=== PATIENT | male | born 1995 | race Caucasian/White ===

== ENCOUNTER 2020-03-10 11:05 | Inpatient (IN) | payer OTHER ==
[~2020-03-10] VITALS: Ht 165.1 cm; Wt 63.0 kg
[2020-03-10] MEDS ORDERED: CETI-450 PO (11:39)
[2020-03-10 12:07] LABS: BASOPHILS % (AUTO) 0.1 % (0.0-2.0); EOSINOPHILS % (AUTO) 0.3 % (1.0-6.0); HEMATOCRIT 53.4 % (41-53); HEMOGLOBIN 18.6 g/dL (13.5-17.5); LYMPHOCYTES # (AUTO) 0.8 K/uL (1.0-4.8); LYMPHOCYTES % (AUTO) 10.4 % (22.0-44.0); MEAN CORPUSCULAR HEMOGLOBIN 30.9 pg (26.0-34.0); MEAN CORPUSCULAR HGB CONC 34.9 G/dL (31.0-37.0); MEAN CORPUSCULAR VOLUME 89 fL (80-100); MONOCYTES # (AUTO) 0.4 K/uL (0.1-1.0); MONOCYTES % (AUTO) 5.7 % (2.0-9.0); NEUTROPHILS # (AUTO) 6.3 K/uL (1.8-7.7); NEUTROPHILS % (AUTO) 83.5 % (40.0-70.0); PLATELET COUNT (AUTO) 222 K/uL (150-450); RED BLOOD CELL COUNT(AUTO) 6.03 MIL/uL (4.50-5.90); RED CELL DISTRIBUTION WIDTH 13.3 % (11.5-14.5)
[2020-03-10 12:15] LABS: ANION GAP 7 mmol/L (8-16); CALCIUM, TOTAL 9.4 mg/dL (8.8-10.5); CARBON DIOXIDE 29 mmol/L (22-29); CHLORIDE 104 mmol/L (98-107); CREATININE 0.79 mg/dL (0.60-1.30); GLOMERULAR FILTR. RATE CALC > 60 mL/min (>60); GLUCOSE,RANDOM 105 mg/dL (70-110); POTASSIUM 4.5 mmol/L (3.5-5.1); SODIUM SERUM 140 mmol/L (136-145); UREA NITROGEN, BLOOD 7 mg/dL (7-18)
[2020-03-10 12:21] LABS: ALANINE AMINOTRANSFERASE 34 U/L (12-78); ALBUMIN 4.4 g/dL (3.4-5.0); ALKALINE PHOSPHATASE 91 U/L (46-116); ASPARTATE AMINOTRANSFERASE 33 U/L (15-37); BILIRUBIN,TOTAL 0.6 mg/dL (0.1-1.0); TOTAL PROTEIN, SERUM 8.6 g/dL (6.4-8.2)
[2020-03-10] MEDS ORDERED: IPRATROPIUM BROMIDE 0.5 MG/2.5 ML NEB SOLUTION NEB PRN (12:45)
[2020-03-10] MEDS ORDERED: ONDANSETRON HCL 4 MG/2 ML VIAL IVP PRN (12:45)
[2020-03-10] MEDS ORDERED: ALBUTEROL SULFATE 2.5 MG/0.5 ML NEB SOLUTION NEB PRN (12:45)
[2020-03-10] MEDS ORDERED: DOCUSATE SODIUM 100 MG CAPSULE PO PRN (12:45)
[2020-03-10] MEDS ORDERED: BISACODYL 10 MG RECTAL RECTAL SUPPOSITORY PR PRN (12:45)
[2020-03-10] MEDS ORDERED: MAGNESIUM HYDROXIDE SUSPENSION 30 ML UDCUP PO PRN (12:45)
[2020-03-10] MEDS ORDERED: 0.9% SODIUM CHLORIDE 10 ML SYRINGE IVP PRN (12:45)
[2020-03-10] MEDS: PANTOPRAZOLE SODIUM 40 MG DR TABLET PO SCH (13:18)
[2020-03-10] MEDS: THIAMINE 100 MG TABLET PO SCH (13:18)
[2020-03-10] MEDS: MULTIVITAMINS, THERAPEUTIC TABLET PO SCH (13:19)
[2020-03-10] MEDS: FOLIC ACID 1 MG TABLET PO SCH (13:19)
[2020-03-10 15:46] VITALS: BP 145/97
[2020-03-10 19:35] VITALS: BP 149/85
[2020-03-11 03:02] LABS: AMPHET/METH SCREEN,URINE NEGATIVE (NEGATIVE); BARBITURATE SCREEN, URINE NEGATIVE (NEGATIVE); BENZODIAZEPINES SCREEN,URINE NEGATIVE (NEGATIVE); CANNABINOID SCREEN,URINE NEGATIVE (NEGATIVE); COCAINE SCREEN,URINE NEGATIVE (NEGATIVE); METHADONE SCREEN, URINE NEGATIVE (NEGATIVE); OPIATE SCREEN,URINE NEGATIVE (NEGATIVE)
[2020-03-11 03:45] LABS: PHENCYCLIDINE SCREEN,URINE NEGATIVE (NEGATIVE)
[2020-03-11 04:04] VITALS: BP 138/75
[2020-03-11 07:11] LABS: BASOPHILS % (AUTO) 0.4 % (0.0-2.0); EOSINOPHILS % (AUTO) 1.1 % (1.0-6.0); HEMATOCRIT 47.8 % (41-53); HEMOGLOBIN 16.8 g/dL (13.5-17.5); LYMPHOCYTES # (AUTO) 2.1 K/uL (1.0-4.8); LYMPHOCYTES % (AUTO) 26.9 % (22.0-44.0); MEAN CORPUSCULAR HEMOGLOBIN 31.4 pg (26.0-34.0); MEAN CORPUSCULAR HGB CONC 35.2 G/dL (31.0-37.0); MEAN CORPUSCULAR VOLUME 89 fL (80-100); MONOCYTES # (AUTO) 0.7 K/uL (0.1-1.0); MONOCYTES % (AUTO) 8.8 % (2.0-9.0); NEUTROPHILS % (AUTO) 62.8 % (40.0-70.0); PLATELET COUNT (AUTO) 222 K/uL (150-450); RED BLOOD CELL COUNT(AUTO) 5.36 MIL/uL (4.50-5.90); RED CELL DISTRIBUTION WIDTH 13.3 % (11.5-14.5)
[2020-03-11 07:22] LABS: ANION GAP 12 mmol/L (8-16); CALCIUM, TOTAL 8.9 mg/dL (8.8-10.5); CARBON DIOXIDE 27 mmol/L (22-29); CHLORIDE 104 mmol/L (98-107); CREATININE 0.76 mg/dL (0.60-1.30); GLOMERULAR FILTR. RATE CALC > 60 mL/min (>60); GLUCOSE,RANDOM 85 mg/dL (70-110); POTASSIUM 3.4 mmol/L (3.5-5.1); SODIUM SERUM 143 mmol/L (136-145); UREA NITROGEN, BLOOD 6 mg/dL (7-18)
[2020-03-11 07:28] VITALS: BP 135/76
[2020-03-11] MEDS: THIAMINE 100 MG TABLET PO SCH ×2 (08:35→08:41)
[2020-03-11] MEDS: PANTOPRAZOLE SODIUM 40 MG DR TABLET PO SCH ×2 (08:35→08:41)
[2020-03-11] MEDS: MULTIVITAMINS, THERAPEUTIC TABLET PO SCH ×2 (08:35→08:41)
[2020-03-11] MEDS: FOLIC ACID 1 MG TABLET PO SCH ×2 (08:35→08:41)
[2020-03-11] MEDS: RisperiDONE 1 MG TABLET PO SCH ×2 (09:51→20:45)
[2020-03-11 12:30] VITALS: BP 132/71
[2020-03-11] MEDS ORDERED: POTASSIUM CHLORIDE 20 MEQ ER TABLET PO ONE (14:30)
[2020-03-11 20:18] VITALS: BP 128/72
[2020-03-11] MEDS: MAGNESIUM SULFATE 2 GM, MVI, ADULT NO.1 WITH VIT K 10 ML, THIAMINE 100 MG, FOLIC ACID 1... IV SCH ×5 (20:30)
[2020-03-11] MEDS: POTASSIUM CHL 10 MEQ/WATER 50 ML IV SCH ×2 (20:45→21:33)
[2020-03-12 05:34] VITALS: BP 118/70
[2020-03-12 08:54] VITALS: BP 107/71
[2020-03-12] MEDS: RisperiDONE 1 MG TABLET PO SCH ×2 (09:04→20:13)
[2020-03-12] MEDS: PANTOPRAZOLE SODIUM 40 MG DR TABLET PO SCH (09:04)
[2020-03-12] MEDS: MAGNESIUM SULFATE 2 GM, MVI, ADULT NO.1 WITH VIT K 10 ML, THIAMINE 100 MG, FOLIC ACID 1... IV SCH ×5 (14:27)
[2020-03-12 15:27] LABS: ANION GAP 11 mmol/L (8-16); CALCIUM, TOTAL 8.9 mg/dL (8.8-10.5); CARBON DIOXIDE 27 mmol/L (22-29); CHLORIDE 104 mmol/L (98-107); CREATININE 0.92 mg/dL (0.60-1.30); GLOMERULAR FILTR. RATE CALC > 60 mL/min (>60); GLUCOSE,RANDOM 122 mg/dL (70-110); POTASSIUM 3.7 mmol/L (3.5-5.1); SODIUM SERUM 142 mmol/L (136-145); UREA NITROGEN, BLOOD 7 mg/dL (7-18)
[2020-03-12 15:52] VITALS: BP 112/63
[2020-03-12 20:00] VITALS: BP 121/77
[2020-03-13 04:55] VITALS: BP 125/72
[2020-03-13] MEDS: PANTOPRAZOLE SODIUM 40 MG DR TABLET PO SCH (08:19)
[2020-03-13] MEDS: RisperiDONE 1 MG TABLET PO SCH ×2 (08:19→20:50)
[2020-03-13 08:49] VITALS: BP 115/63
[2020-03-13] MEDS: MAGNESIUM SULFATE 2 GM, MVI, ADULT NO.1 WITH VIT K 10 ML, THIAMINE 100 MG, FOLIC ACID 1... IV SCH ×5 (14:36)
[2020-03-13 16:48] VITALS: BP 128/71
[2020-03-13 19:46] VITALS: BP 135/77
[2020-03-13] MEDS: ACETAMINOPHEN 325 MG TABLET PO PRN (19:48)
[2020-03-14 05:13] VITALS: BP 133/64
[2020-03-14 07:36] VITALS: BP 117/68
[2020-03-14] MEDS: PANTOPRAZOLE SODIUM 40 MG DR TABLET PO SCH (08:31)
[2020-03-14] MEDS: RisperiDONE 1 MG TABLET PO SCH ×2 (08:31→20:37)
[2020-03-14] MEDS: MAGNESIUM SULFATE 2 GM, MVI, ADULT NO.1 WITH VIT K 10 ML, THIAMINE 100 MG, FOLIC ACID 1... IV SCH ×5 (15:02)
[2020-03-14 15:25] VITALS: BP 128/67
[2020-03-14] MEDS: ACETAMINOPHEN 325 MG TABLET PO PRN ×2 (16:27→20:37)
[2020-03-14 20:00] VITALS: BP 155/69
[2020-03-14] MEDS ORDERED: LORazepam 2 MG/ML VIAL IM ONE (22:30)
[2020-03-14] MEDS ORDERED: DiphenhydrAMINE HCL 50 MG/ML VIAL IVP ONE (22:30)
[2020-03-14] MEDS ORDERED: HALOPERIDOL LACTATE 5 MG/ML VIAL IM ONE (22:30)
[2020-03-15 04:25] VITALS: BP 103/56
[2020-03-15 08:38] VITALS: BP 109/75
[2020-03-15] MEDS: PANTOPRAZOLE SODIUM 40 MG DR TABLET PO SCH (08:48)
[2020-03-15] MEDS: RisperiDONE 1 MG TABLET PO SCH ×2 (08:48→21:36)
[2020-03-15] MEDS: ACETAMINOPHEN 325 MG TABLET PO PRN ×2 (08:49→21:37)
[2020-03-15] MEDS: MAGNESIUM SULFATE 2 GM, MVI, ADULT NO.1 WITH VIT K 10 ML, THIAMINE 100 MG, FOLIC ACID 1... IV SCH ×5 (14:10)
[2020-03-15 19:48] VITALS: BP 120/62
[2020-03-16] MEDS: PANTOPRAZOLE SODIUM 40 MG DR TABLET PO SCH (09:00)
[2020-03-16] MEDS: RisperiDONE 1 MG TABLET PO SCH ×2 (09:00→20:04)
[2020-03-16] MEDS: ACETAMINOPHEN 325 MG TABLET PO PRN (20:04)
[2020-03-16 20:30] VITALS: BP 128/71
[2020-03-17 07:44] VITALS: BP 113/71
[2020-03-17] MEDS: RisperiDONE 1 MG TABLET PO SCH (09:00)
[2020-03-17] MEDS: PANTOPRAZOLE SODIUM 40 MG DR TABLET PO SCH (09:00)
[2020-03-17] MEDS ORDERED: RISP1TAB27 PO (14:18)
== END 2020-03-17 19:05 | DRG 885 ==
LOC: EMS 11:08 → 6S 12:45
PROVIDERS: ADMIT Internal Medicine; ATTEND Internal Medicine
DX: F25.1 Schizoaffective disorder, depressive type (principal); R45.851 Suicidal ideations; F23 Brief psychotic disorder; F10.10 Alcohol abuse, uncomplicated; F41.9 Anxiety disorder, unspecified; F17.210 Nicotine dependence, cigarettes, uncomplicated; F14.90 Cocaine use, unspecified, uncomplicated
CPT/HCPCS: G0480; J1200; J1630; J2060; J2405; J3411; J3475; J3480; J3490; J7030

== ENCOUNTER 2020-03-31 21:52 | Inpatient (IN) | payer OTHER ==
[~2020-03-31] VITALS: Ht 170.2 cm; Wt 64.9 kg
[~2020-03-31 21:52] MED LIST: RISP1TAB27 PO
[2020-03-31] MEDS ORDERED: CETI-450 PO (21:56)
[2020-03-31] MEDS ORDERED: ONDANSETRON HCL 4 MG/2 ML VIAL IVP ONE (22:30)
[2020-03-31] MEDS ORDERED: SODIUM CHLORIDE 0.9% 1,000 ML IV ONE (22:30)
[2020-03-31] MEDS ORDERED: ONDANSETRON HCL 4 MG TABLET PO ONE (23:00)
[2020-03-31 23:19] LABS: BASOPHILS % (AUTO) 0.4 % (0.0-2.0); EOSINOPHILS % (AUTO) 0.6 % (1.0-6.0); HEMATOCRIT 50.6 % (41-53); HEMOGLOBIN 17.4 g/dL (13.5-17.5); LYMPHOCYTES # (AUTO) 1.8 K/uL (1.0-4.8); LYMPHOCYTES % (AUTO) 22.2 % (22.0-44.0); MEAN CORPUSCULAR HEMOGLOBIN 30.6 pg (26.0-34.0); MEAN CORPUSCULAR HGB CONC 34.4 G/dL (31.0-37.0); MEAN CORPUSCULAR VOLUME 89 fL (80-100); MONOCYTES # (AUTO) 0.8 K/uL (0.1-1.0); MONOCYTES % (AUTO) 9.6 % (2.0-9.0); NEUTROPHILS # (AUTO) 5.5 K/uL (1.8-7.7); NEUTROPHILS % (AUTO) 67.2 % (40.0-70.0); PLATELET COUNT (AUTO) 249 K/uL (150-450); RED BLOOD CELL COUNT(AUTO) 5.67 MIL/uL (4.50-5.90); RED CELL DISTRIBUTION WIDTH 13.4 % (11.5-14.5)
[2020-03-31 23:36] LABS: ANION GAP 10 mmol/L (8-16); CALCIUM, TOTAL 9.7 mg/dL (8.8-10.5); CARBON DIOXIDE 26 mmol/L (22-29); CHLORIDE 105 mmol/L (98-107); CREATININE 1.12 mg/dL (0.60-1.30); GLOMERULAR FILTR. RATE CALC > 60 mL/min (>60); GLUCOSE,RANDOM 113 mg/dL (70-110); POTASSIUM 4.1 mmol/L (3.5-5.1); SODIUM SERUM 141 mmol/L (136-145); UREA NITROGEN, BLOOD 5 mg/dL (7-18)
[2020-03-31 23:45] LABS: ALANINE AMINOTRANSFERASE 44 U/L (12-78); ALBUMIN 4.3 g/dL (3.4-5.0); ALKALINE PHOSPHATASE 89 U/L (46-116); ASPARTATE AMINOTRANSFERASE 33 U/L (15-37); BILIRUBIN,TOTAL 0.2 mg/dL (0.1-1.0)
[2020-03-31] MEDS ORDERED: ONDANSETRON HCL 4 MG/2 ML VIAL IVP PRN (23:45)
[2020-03-31] MEDS ORDERED: ACETAMINOPHEN 325 MG TABLET PO PRN (23:45)
[2020-03-31 23:46] LABS: ACETAMINOPHEN < 2 mcg/mL (10-30)
[2020-04-01 00:22] LABS: SALICYLATE < 2.8 mg/dL (2.8-20.0)
[2020-04-01 01:00] VITALS: BP 145/94
[2020-04-01 06:24] LABS: AMPHET/METH SCREEN,URINE NEGATIVE (NEGATIVE); BARBITURATE SCREEN, URINE NEGATIVE (NEGATIVE); BENZODIAZEPINES SCREEN,URINE NEGATIVE (NEGATIVE); CANNABINOID SCREEN,URINE NEGATIVE (NEGATIVE); COCAINE SCREEN,URINE NEGATIVE (NEGATIVE); METHADONE SCREEN, URINE NEGATIVE (NEGATIVE); OPIATE SCREEN,URINE NEGATIVE (NEGATIVE)
[2020-04-01 06:36] LABS: PHENCYCLIDINE SCREEN,URINE NEGATIVE (NEGATIVE)
[2020-04-01 08:15] VITALS: BP 141/69
[2020-04-01 15:29] VITALS: BP 120/71
[2020-04-01 20:03] VITALS: BP 134/82
[2020-04-02 05:01] VITALS: BP 126/65
[2020-04-02 08:29] VITALS: BP 129/71
[2020-04-02] MEDS ORDERED: CITALOPRAM HYDROBROMIDE 20 MG TABLET PO ONE (11:00)
[2020-04-02 15:52] VITALS: BP 122/82
[2020-04-02 19:30] VITALS: BP 114/61
[2020-04-02] MEDS: ACETAMINOPHEN 325 MG TABLET PO PRN (20:15)
[2020-04-03 04:00] VITALS: BP 126/61
[2020-04-03 09:30] VITALS: BP 118/70
[2020-04-03 12:54] VITALS: BP 131/60
[2020-04-03 20:00] VITALS: BP 127/76
[2020-04-03] MEDS: ACETAMINOPHEN 325 MG TABLET PO PRN (20:29)
[2020-04-04 03:55] VITALS: BP 123/63
[2020-04-04 07:20] VITALS: BP 121/62
[2020-04-04] MEDS: CITALOPRAM HYDROBROMIDE 20 MG TABLET PO SCH (08:17)
[2020-04-04 21:02] VITALS: BP 138/71
[2020-04-05 05:44] VITALS: BP 122/70
[2020-04-05] MEDS: CITALOPRAM HYDROBROMIDE 20 MG TABLET PO SCH (08:45)
[2020-04-05 09:09] VITALS: BP 125/71
[2020-04-05 16:43] VITALS: BP 119/68
[2020-04-05 19:40] VITALS: BP 132/80
[2020-04-05] MEDS: ACETAMINOPHEN 325 MG TABLET PO PRN (20:14)
[2020-04-06 04:36] VITALS: BP 125/72
[2020-04-06] MEDS: CITALOPRAM HYDROBROMIDE 20 MG TABLET PO SCH (08:17)
[2020-04-06 08:38] VITALS: BP 119/56
[2020-04-06 15:41] VITALS: BP 128/74
[2020-04-06 20:46] VITALS: BP 127/73
[2020-04-07 04:00] VITALS: BP 125/78
[2020-04-07 07:57] VITALS: BP 124/70
[2020-04-07] MEDS: CITALOPRAM HYDROBROMIDE 20 MG TABLET PO SCH (08:26)
[2020-04-07 16:15] VITALS: BP 127/65
[2020-04-07] MEDS ORDERED: LORazepam 2 MG/ML VIAL ONE (16:59)
[2020-04-07] MEDS ORDERED: HALOPERIDOL LACTATE 5 MG/ML VIAL ONE (16:59)
[2020-04-07] MEDS ORDERED: DiphenhydrAMINE HCL 50 MG/ML VIAL ONE (16:59)
[2020-04-07] MEDS ORDERED: LORazepam 2 MG/ML VIAL IM ONE (17:00)
[2020-04-07] MEDS ORDERED: DiphenhydrAMINE HCL 50 MG/ML VIAL IM ONE (17:00)
[2020-04-07] MEDS ORDERED: HALOPERIDOL LACTATE 5 MG/ML VIAL IM ONE (17:00)
[2020-04-07] MEDS ORDERED: HALOPERIDOL LACTATE 5 MG/ML VIAL IM PRN (17:15)
[2020-04-07] MEDS ORDERED: LORazepam 2 MG/ML VIAL IM PRN (17:15)
[2020-04-07] MEDS ORDERED: DiphenhydrAMINE HCL 50 MG/ML VIAL IM PRN (17:15)
[2020-04-07 19:55] VITALS: BP 120/70
[2020-04-07] MEDS ORDERED: OLANZapine 10 MG TABLET PO SCH (21:00)
[2020-04-08 05:46] VITALS: BP 117/69
[2020-04-08] MEDS: CITALOPRAM HYDROBROMIDE 20 MG TABLET PO SCH (09:22)
[2020-04-08 09:26] VITALS: BP 126/74
[2020-04-08 19:29] VITALS: BP 116/57
[2020-04-08] MEDS: OLANZapine 7.5 MG TABLET PO SCH (20:32)
[2020-04-09 05:43] VITALS: BP 112/76
[2020-04-09] MEDS: CITALOPRAM HYDROBROMIDE 20 MG TABLET PO SCH (09:00)
[2020-04-09 15:46] VITALS: BP 130/69
[2020-04-09 19:50] VITALS: BP 135/74
[2020-04-09] MEDS: OLANZapine 7.5 MG TABLET PO SCH (21:33)
[2020-04-10 04:30] VITALS: BP 136/69
[2020-04-10 08:15] VITALS: BP 116/66
[2020-04-10] MEDS: CITALOPRAM HYDROBROMIDE 20 MG TABLET PO SCH (08:40)
[2020-04-10] MEDS ORDERED: OLAN7.5T2 PO (13:51)
[2020-04-10] MEDS ORDERED: CITA-144 PO (13:51)
== END 2020-04-10 19:05 | DRG 918 ==
LOC: EMS 22:06 → 6S 23:45
PROVIDERS: ADMIT Hospitalist; ATTEND Hospitalist
DX: T39.312A Poisoning by propionic acid derivatives, intentional self-harm, initial encounter (principal); R45.851 Suicidal ideations; F32.9 Major depressive disorder, single episode, unspecified; Z87.891 Personal history of nicotine dependence; Y92.89 Other specified places as the place of occurrence of the external cause; F41.9 Anxiety disorder, unspecified
CPT/HCPCS: 87081; 93005; G0480; G0481; J1200; J1630; J2060; Q0162

== ENCOUNTER 2020-05-08 00:01 | Inpatient (IN) | payer OTHER ==
[~2020-05-08] VITALS: Ht 167.6 cm; Wt 66.9 kg
[~2020-05-08 00:01] MED LIST changes: +CETI-450 PO; +CITA-144 PO; +OLAN7.5T2 PO; -RISP1TAB27 PO
[2020-05-08] MEDS ORDERED: TRIL4 PO (00:26)
[2020-05-08] MEDS ORDERED: BENZ1TAB10 PO (00:26)
[2020-05-08 01:16] LABS: BASOPHILS % (AUTO) 0.4 % (0.0-2.0); EOSINOPHILS % (AUTO) 1.3 % (1.0-6.0); HEMATOCRIT 48.3 % (41-53); HEMOGLOBIN 16.9 g/dL (13.5-17.5); LYMPHOCYTES % (AUTO) 26.9 % (22.0-44.0); MEAN CORPUSCULAR HEMOGLOBIN 31.1 pg (26.0-34.0); MEAN CORPUSCULAR VOLUME 89 fL (80-100); MONOCYTES # (AUTO) 0.6 K/uL (0.1-1.0); MONOCYTES % (AUTO) 8.6 % (2.0-9.0); NEUTROPHILS # (AUTO) 4.6 K/uL (1.8-7.7); NEUTROPHILS % (AUTO) 62.8 % (40.0-70.0); PLATELET COUNT (AUTO) 196 K/uL (150-450); RED BLOOD CELL COUNT(AUTO) 5.43 MIL/uL (4.50-5.90); RED CELL DISTRIBUTION WIDTH 13.3 % (11.5-14.5)
[2020-05-08 01:18] LABS: ANION GAP 1 mmol/L (8-16); CALCIUM, TOTAL 9.5 mg/dL (8.8-10.5); CARBON DIOXIDE 31 mmol/L (22-29); CHLORIDE 101 mmol/L (98-107); CREATININE 0.84 mg/dL (0.60-1.30); GLOMERULAR FILTR. RATE CALC > 60 mL/min (>60); GLUCOSE,RANDOM 98 mg/dL (70-110); POTASSIUM 4.1 mmol/L (3.5-5.1); SODIUM SERUM 133 mmol/L (136-145); UREA NITROGEN, BLOOD 11 mg/dL (7-18)
[2020-05-08 01:24] LABS: ALANINE AMINOTRANSFERASE 127 U/L (12-78); ALBUMIN 4.2 g/dL (3.4-5.0); ALKALINE PHOSPHATASE 97 U/L (46-116); ASPARTATE AMINOTRANSFERASE 37 U/L (15-37); BILIRUBIN,TOTAL 0.4 mg/dL (0.1-1.0); TOTAL PROTEIN, SERUM 7.9 g/dL (6.4-8.2)
[2020-05-08 01:41] LABS: AMPHET/METH SCREEN,URINE NEGATIVE (NEGATIVE); BARBITURATE SCREEN, URINE NEGATIVE (NEGATIVE); BENZODIAZEPINES SCREEN,URINE NEGATIVE (NEGATIVE); CANNABINOID SCREEN,URINE NEGATIVE (NEGATIVE); COCAINE SCREEN,URINE NEGATIVE (NEGATIVE); METHADONE SCREEN, URINE NEGATIVE (NEGATIVE); OPIATE SCREEN,URINE NEGATIVE (NEGATIVE)
[2020-05-08 02:00] LABS: PHENCYCLIDINE SCREEN,URINE NEGATIVE (NEGATIVE)
[2020-05-08] MEDS ORDERED: OLANZapine 5 MG TABLET PO ONE (02:00)
[2020-05-08 03:16] VITALS: BP 128/79
[2020-05-08 08:16] VITALS: BP 120/62
[2020-05-08] MEDS: BENZTROPINE MESYLATE 1 MG TABLET PO SCH ×2 (11:32→20:03)
[2020-05-08] MEDS: PERPHENAZINE 4 MG TABLET PO SCH ×2 (11:32→20:03)
[2020-05-08] MEDS: CITALOPRAM HYDROBROMIDE 20 MG TABLET PO SCH (11:32)
[2020-05-08 16:11] VITALS: BP 108/53
[2020-05-08] MEDS ORDERED: ZOLPIDEM TARTRATE 5 MG TABLET PO PRN (19:00)
[2020-05-08] MEDS ORDERED: ONDANSETRON HCL 4 MG/2 ML VIAL IVP PRN (19:00)
[2020-05-08] MEDS ORDERED: BISACODYL 10 MG RECTAL RECTAL SUPPOSITORY PR PRN (19:00)
[2020-05-08] MEDS ORDERED: IPRATROPIUM BROMIDE 0.5 MG/2.5 ML NEB SOLUTION NEB PRN (19:00)
[2020-05-08] MEDS ORDERED: MAGNESIUM HYDROXIDE SUSPENSION 30 ML UDCUP PO PRN (19:00)
[2020-05-08] MEDS ORDERED: ALBUTEROL SULFATE 2.5 MG/0.5 ML NEB SOLUTION NEB PRN (19:00)
[2020-05-08 19:30] VITALS: BP 125/70
[2020-05-08] MEDS: OLANZapine 7.5 MG TABLET PO SCH (20:03)
[2020-05-08] MEDS: HEPARIN SODIUM,PORCINE 5,000 UNITS/ML VIAL SQ SCH (23:39)
[2020-05-09 05:45] VITALS: BP 125/68
[2020-05-09 07:53] VITALS: BP 119/61
[2020-05-09] MEDS: PERPHENAZINE 4 MG TABLET PO SCH ×2 (08:27→19:45)
[2020-05-09] MEDS: CITALOPRAM HYDROBROMIDE 20 MG TABLET PO SCH (08:27)
[2020-05-09] MEDS: BENZTROPINE MESYLATE 1 MG TABLET PO SCH ×2 (08:27→19:45)
[2020-05-09] MEDS: HEPARIN SODIUM,PORCINE 5,000 UNITS/ML VIAL SQ SCH ×4 (08:27→23:41)
[2020-05-09 15:48] VITALS: BP 115/55
[2020-05-09] MEDS: OLANZapine 7.5 MG TABLET PO SCH (19:45)
[2020-05-09] MEDS: ACETAMINOPHEN 325 MG TABLET PO PRN ×2 (19:48→23:40)
[2020-05-09 19:50] VITALS: BP 126/79
[2020-05-10 05:25] VITALS: BP 106/64
[2020-05-10 07:52] VITALS: BP 114/62
[2020-05-10] MEDS: PERPHENAZINE 4 MG TABLET PO SCH ×2 (08:43→19:55)
[2020-05-10] MEDS: HEPARIN SODIUM,PORCINE 5,000 UNITS/ML VIAL SQ SCH ×2 (08:43→15:46)
[2020-05-10] MEDS: CITALOPRAM HYDROBROMIDE 20 MG TABLET PO SCH (08:43)
[2020-05-10] MEDS: BENZTROPINE MESYLATE 1 MG TABLET PO SCH ×2 (08:43→19:55)
[2020-05-10 15:32] VITALS: BP 111/61
[2020-05-10] MEDS: ACETAMINOPHEN 325 MG TABLET PO PRN (15:46)
[2020-05-10] MEDS: OLANZapine 7.5 MG TABLET PO SCH (19:55)
[2020-05-10 19:58] VITALS: BP 126/77
[2020-05-11] MEDS: HEPARIN SODIUM,PORCINE 5,000 UNITS/ML VIAL SQ SCH ×4 (00:04→23:24)
[2020-05-11 05:27] VITALS: BP 108/60
[2020-05-11 07:56] VITALS: BP 121/84
[2020-05-11] MEDS: BENZTROPINE MESYLATE 1 MG TABLET PO SCH ×2 (08:35→20:15)
[2020-05-11] MEDS: CITALOPRAM HYDROBROMIDE 20 MG TABLET PO SCH (08:35)
[2020-05-11] MEDS: PERPHENAZINE 4 MG TABLET PO SCH ×2 (08:35→23:24)
[2020-05-11] MEDS ORDERED: DiphenhydrAMINE HCL 25 MG CAPSULE PO PRN (11:45)
[2020-05-11 15:31] VITALS: BP 121/64
[2020-05-11] MEDS: ACETAMINOPHEN 325 MG TABLET PO PRN (15:39)
[2020-05-11 19:26] VITALS: BP 123/60
[2020-05-11] MEDS: OLANZapine 7.5 MG TABLET PO SCH (20:15)
[2020-05-12 03:48] VITALS: BP 109/56
[2020-05-12] MEDS: HEPARIN SODIUM,PORCINE 5,000 UNITS/ML VIAL SQ SCH ×2 (08:19→15:15)
[2020-05-12] MEDS: BENZTROPINE MESYLATE 1 MG TABLET PO SCH (08:19)
[2020-05-12] MEDS: PERPHENAZINE 4 MG TABLET PO SCH (08:19)
[2020-05-12] MEDS: CITALOPRAM HYDROBROMIDE 20 MG TABLET PO SCH (08:19)
[2020-05-12 08:23] VITALS: BP 135/70
== END 2020-05-12 16:50 | DRG 885 ==
LOC: EMS 00:02 → UNDOADMIN 01:00 → 6S 01:00
PROVIDERS: ADMIT Hospitalist; ATTEND Hospitalist
DX: F25.1 Schizoaffective disorder, depressive type (principal); R45.851 Suicidal ideations; F41.9 Anxiety disorder, unspecified; F17.210 Nicotine dependence, cigarettes, uncomplicated; F14.10 Cocaine abuse, uncomplicated; Z91.19 Patient's noncompliance with other medical treatment and regimen
CPT/HCPCS: G0480; J1644